=== PATIENT | female | born 1980 | race Caucasian/White ===

== ENCOUNTER → 2016-09-10 | Outpatient (CLI) | payer MEDICAID ==
[~2016-09-10] MED LIST: AMOXICILLIN/CLA1 TA1 PO; DESYREL DIVIDO150 M1 PO; GLUCOPHAGE500 MG/TAB PO; NORCO 325 MG-51 TAB PO; PERCOCET 325 MG1 TA2 PO; PRINIVIL2.5 MG PO; SYNTHROID0.1 MG/TAB PO; XANAX 0.5MG0.5 MG PO; ZOFRAN ODT4 MG PO
== END ==
LOC: COL.RAD 11:11
DX: M51.26 Other intervertebral disc displacement, lumbar region (principal)

== ENCOUNTER 2020-04-07 07:06 | Day surgery (SDC) | payer BC ==
[~2020-04-07] VITALS: Ht 160 cm; Wt 108.3 kg
[2020-04-07] MEDS ORDERED: TYLENOL 325MG325 MG PO (07:39)
[2020-04-07] MEDS ORDERED: ROBAXIN 50500 MG/TAB PO (07:40)
[2020-04-07] MEDS ORDERED: GLUCOPHAGE1000 MG PO (07:41)
[2020-04-07] MEDS ORDERED: LEVOXYL0.137 MG PO (07:42)
[2020-04-07] MEDS ORDERED: CANA300T PO (07:42)
[2020-04-07] MEDS ORDERED: PRINIVIL2.5 MG PO (07:42)
[2020-04-07 07:43] VITALS: BP 132/84; PULSE 62; TEMP 97.7
[2020-04-07 07:49] LABS: TRICYCLIC ANTIDEPRESS URINE NEGATIVE
[2020-04-07 10:45] VITALS: BP 122/63; PULSE 52; TEMP 98
[2020-04-07 11:00] VITALS: BP 141/81; PULSE 59
[2020-04-07 11:15] VITALS: BP 157/66; PULSE 50
[2020-04-07 11:30] VITALS: BP 145/55; PULSE 47
== END 2020-04-07 12:15 | disposition home or self-care (01) ==
LOC: SDCO 07:06
PROVIDERS: Nurse Anesthetist, Certified Registered
DX: N20.2 Calculus of kidney with calculus of ureter (principal); E11.9 Type 2 diabetes mellitus without complications; Z79.84 Long term (current) use of oral hypoglycemic drugs; Z79.899 Other long term (current) drug therapy; Z98.51 Tubal ligation status; I10 Essential (primary) hypertension; F17.210 Nicotine dependence, cigarettes, uncomplicated; F32.9 Major depressive disorder, single episode, unspecified; F41.9 Anxiety disorder, unspecified; F41.0 Panic disorder [episodic paroxysmal anxiety]; F43.10 Post-traumatic stress disorder, unspecified; E03.9 Hypothyroidism, unspecified; Z80.3 Family history of malignant neoplasm of breast; Z88.8 Allergy status to other drugs, medicaments and biological substances; Z80.8 Family history of malignant neoplasm of other organs or systems
CPT/HCPCS: C1769; C2617; J0690; J1100; J1885; J2405; J2704; J3010; J7030; Q9967